=== PATIENT | female | born 2000 | race Caucasian/White ===

== ENCOUNTER 2023-06-22 16:07 | Emergency (ER) | payer MEDICAID ==
[2023-06-22 17:19] LABS: INFLUENZA A NAA NEGATIVE (NEGATIVE); INFLUENZA B NAA NEGATIVE (NEGATIVE)
[2023-06-22 17:21] LABS: CORONAVIRUS COVID-19 NAA NEGATIVE (NEGATIVE)
== END 2023-06-22 17:30 | disposition home or self-care (01) ==
LOC: KA.ED 16:07
DX: J02.9 Acute pharyngitis, unspecified (principal); B34.9 Viral infection, unspecified; Z20.822 Contact with and (suspected) exposure to COVID-19
CPT/HCPCS: 0240U; 87651-QW; 99283

== ENCOUNTER 2024-07-11 16:30 | Emergency (ER) | payer MEDICAID ==
[2024-07-11] MEDS ORDERED: Sodium Chloride 0.9% 10 ML Syringe FLUSH PRN (16:42)
[2024-07-11 16:59] LABS: BASOPHILS ABSOLUTE AUTO 0.01 10^3/uL (0.00-0.10); BASOPHILS PERCENT AUTO 0.1 % (0.0-1.0); EOSINOPHILS ABSOLUTE AUTO 0.01 10^3/uL (0.10-0.30); EOSINOPHILS PERCENT AUTO 0.1 % (1.0-3.0); HEMATOCRIT 35.3 % (37.0-47.0); HEMOGLOBIN 11.8 g/dL (12.0-16.0); IMMATURE GRAN ABSOLUTE AUTO 0.02 10^3/uL (0.00-0.50); IMMATURE GRAN PERCENT AUTO 0.3 % (0.0-5.0); LYMPHOCYTES ABSOLUTE AUTO 0.63 10^3/uL (1.00-4.00); LYMPHOCYTES PERCENT AUTO 8.7 % (20.0-40.0); MEAN CORPUSCULAR HEMOGLOBIN 29.9 pg (27.0-31.0); MEAN CORPUSCULAR HGB CONC 33.4 g/dL (32.0-36.0); MEAN CORPUSCULAR VOLUME 89.4 fL (82.0-92.0); MEAN PLATELET VOLUME 9.8 fL (7.4-10.4); MONOCYTES ABSOLUTE AUTO 0.37 10^3/uL (0.10-0.80); MONOCYTES PERCENT AUTO 5.1 % (2.0-8.0); NEUTROPHILS PERCENT AUTO 85.7 % (50.0-70.0); PLATELET COUNT,PLT 221 10^3/uL (150-400); RED BLOOD CELL COUNT 3.95 10^6/uL (3.80-5.50); RED CELL DISTRIBUTION WIDTH 13.2 % (11.5-14.5); WHITE BLOOD CELL COUNT,WBC 7.24 10^3/uL (5.00-10.00)
[2024-07-11 17:00] LABS: APPEARANCE,URINE SLIGHTLY CLOUDY (CLEAR); BILIRUBIN,URINE NEGATIVE (NEGATIVE); COLOR,URINE YELLOW (YELLOW); GLUCOSE,URINE NEGATIVE (NEGATIVE); KETONES,URINE 40 mg/dL (NEGATIVE); LEUKOCYTE ESTERASE,URINE TRACE (NEGATIVE); NITRITE,URINE NEGATIVE (NEGATIVE); OCCULT BLOOD,URINE NEGATIVE (NEGATIVE); PROTEIN,URINE TRACE mg/dL (NEGATIVE); UROBILINOGEN,URINE 0.2 E.U./dL (0.2-1.0)
[2024-07-11] MEDS: Ondansetron 4 MG/2 ML SDV IVPUSH ONE (17:00)
[2024-07-11] MEDS: Sodium Chloride 0.9% 1,000 ML IV ONE (17:00)
[2024-07-11 17:11] LABS: BACTERIA,URINE FEW /HPF (NONE TO FEW); EPITHELIAL CELLS,URINE MODERATE /LPF; MUCUS,URINE MANY /LPF (NEGATIVE); RBC,URINE 0-5 /HPF (0-5); WBC,URINE 0-5 /HPF (0-5)
[2024-07-11 17:16] LABS: ALBUMIN 2.57 g/dL (3.40-5.00); ANION GAP 15.2 mmol/L (5-15); BILIRUBIN TOTAL 0.3 mg/dL (0.2-1.0); CALCIUM 8.4 mg/dL (8.7-10.3); CARBON DIOXIDE,CO2 23.3 mmol/L (21.0-32.0); CREATININE 0.45 mg/dL (0.51-1.17); EST CRCL DRUG DOSING (CG) 167.9 mL/min; POTASSIUM,K 3.5 mmol/L (3.5-5.1); PROTEIN TOTAL,TP 7.1 g/dL (6.4-8.2)
== END 2024-07-11 18:20 | disposition home or self-care (01) ==
LOC: KA.ED 16:30
DX: O99.613 Diseases of the digestive system complicating pregnancy, third trimester (principal); O99.283 Endocrine, nutritional and metabolic diseases complicating pregnancy, third trimester; K52.9 Noninfective gastroenteritis and colitis, unspecified; E86.0 Dehydration; Z3A.32 32 weeks gestation of pregnancy; Z79.899 Other long term (current) drug therapy; Z88.0 Allergy status to penicillin
CPT/HCPCS: 80053; 81001; 83690; 85025; 96361; 96374; 99284; 99284-25; J2405; J7030

== ENCOUNTER 2024-07-19 15:50 | Emergency (ER) | payer MEDICAID | END 2024-07-19 16:30 | disposition home or self-care (01) | LOC: KA.ED 15:50 | DX: L23.1 Allergic contact dermatitis due to adhesives (principal); Z79.899 Other long term (current) drug therapy; Z88.1 Allergy status to other antibiotic agents | CPT/HCPCS: 99282; 99283 ==

== ENCOUNTER 2025-09-28 02:58 | Emergency (ER) | payer SELFPAY ==
[2025-09-28] MEDS ORDERED: Sodium Chloride 0.9% 10 ML Syringe FLUSH PRN ×2 (03:09→03:28)
[2025-09-28] MEDS: Ondansetron 4 MG/2 ML SDV IVPUSH ONE (03:27)
[2025-09-28 03:40] VITALS: BP 120/68; PULSE 88
[2025-09-28 03:56] LABS: BASOPHILS ABSOLUTE AUTO 0.01 10^3/uL (0.00-0.10); BASOPHILS PERCENT AUTO 0.1 % (0.0-1.0); EOSINOPHILS ABSOLUTE AUTO 0.00 10^3/uL (0.10-0.30); EOSINOPHILS PERCENT AUTO 0.0 % (1.0-3.0); IMMATURE GRAN ABSOLUTE AUTO 0.02 10^3/uL (0.00-0.04); IMMATURE GRAN PERCENT AUTO 0.1 % (0.0-0.4); LYMPHOCYTES ABSOLUTE AUTO 1.36 10^3/uL (1.00-4.00); LYMPHOCYTES PERCENT AUTO 7.9 % (20.0-40.0); MEAN PLATELET VOLUME 10.2 fL (7.4-10.4); MONOCYTES ABSOLUTE AUTO 1.06 10^3/uL (0.10-0.80); MONOCYTES PERCENT AUTO 6.2 % (2.0-8.0); NEUTROPHILS ABSOLUTE AUTO 14.66 10^3/uL (2.50-7.00); NEUTROPHILS PERCENT AUTO 85.7 % (50.0-70.0); PLATELET COUNT,PLT 333 10^3/uL (150-400); RED BLOOD CELL COUNT 4.85 10^6/uL (3.80-5.50); RED CELL DISTRIBUTION WIDTH 12.6 % (11.5-14.5); WHITE BLOOD CELL COUNT,WBC 17.11 10^3/uL (5.00-10.00)
[2025-09-28 04:11] LABS: ALANINE AMINOTRANSFERASE,ALT 54.0 U/L (14-63); ASPARTATE AMNIOTRANSFERASE,AST 26.0 U/L (15-37); BILIRUBIN TOTAL 0.5 mg/dL (0.2-1.0); BLOOD UREA NITROGEN,BUN 19.0 mg/dL (7-18); CARBON DIOXIDE,CO2 25.8 mmol/L (21.0-32.0); CHLORIDE,CL 103.0 mmol/L (98-107); CREATININE 0.62 mg/dL (0.51-1.17); EST CRCL DRUG DOSING (CG) 120.82 mL/min; GLUCOSE RANDOM 124.0 mg/dL (70-140); POTASSIUM,K 3.4 mmol/L (3.5-5.1); PROTEIN TOTAL,TP 7.7 g/dL (6.4-8.2); SODIUM,NA 142.0 mmol/L (136-145)
[2025-09-28 04:12] LABS: ESTIMATED GFR 127.0 mL/min (>=60)
[2025-09-28] MEDS: Ondansetron 4 MG Tab.DIS PO ONE (04:18)
== END 2025-09-28 04:31 | disposition home or self-care (01) ==
LOC: KA.ED 02:58
DX: K52.9 Noninfective gastroenteritis and colitis, unspecified (principal); E86.0 Dehydration; Z88.0 Allergy status to penicillin; Z79.899 Other long term (current) drug therapy
CPT/HCPCS: 80053; 85025; 96361; 96374; 99284-25; A9270-GY; J2405; J7030